=== PATIENT | female | born 1965 | race African-American/Black ===

== ENCOUNTER 2019-11-10 18:02 | Observation (INO) | payer OTHER ==
[~2019-11-10] VITALS: Ht 165.1 cm; Wt 76.5 kg
[2019-11-10 18:20] VITALS: BP 127/72
[2019-11-10 19:16] LABS: ABSOLUTE NEUTROPHILS 11.1 thou/uL (1.4-8.2); BASOPHILS 0.3 % (0.0-2.0); EOSINOPHILS 0.3 % (0.0-3.0); HEMATOCRIT 47.1 % (37.0-47.0); HEMOGLOBIN 15.7 gm/dL (12.0-15.0); LYMPHOCYTES 5.6 % (24.0-44.0); MCH 31.4 pg (26.0-34.0); MCHC 33.4 g/dL (28.0-37.0); MONOCYTES 3.6 % (1.0-8.0); PLATELET COUNT 202 thou/uL (150-400); POLYS 90.2 % (36.0-66.0); RBC 5.01 mil/uL (4.20-5.00); RDW 12.5 % (10.5-14.5); WBC 12.3 thou/uL (4.0-11.0)
[2019-11-10 19:21] LABS: ANION GAP 16 mmol/L (7-16); BUN 9 mg/dL (7-18); CALCIUM 8.5 mg/dL (8.5-10.1); CHLORIDE 102 mmol/L (98-107); CO2 20 mmol/L (21-32); CREATININE 0.9 mg/dL (0.6-1.0); GLUCOSE 122 mg/dL (74-106); POTASSIUM 4.2 mmol/L (3.5-5.1); SODIUM 138 mmol/L (136-145)
[2019-11-10 19:33] LABS: ALBUMIN 3.4 g/dL (3.4-5.0); SGOT 46 U/L (15-37); SGPT 42 U/L (30-65); TOTAL BILIRUBIN 0.6 mg/dL (<0.1-1.0); TOTAL PROTEIN 7.3 g/dL (6.4-8.2); TROPONIN-I <0.06 ng/mL (<0.06)
[2019-11-10 20:59] VITALS: BP 148/89
--- NOTE | 2019-11-10 21:03 | NUR ---
ED NURSE CALLED TO GIVE REPORT TO INPATIENT NURSE, WAS TOLD NURSE WILL CALL BACK
[2019-11-10 21:55] VITALS: BP 15/84; BP 153/84
[2019-11-11 04:20] VITALS: BP 121/58
--- NOTE | 2019-11-11 05:38 | NUR ---
PT ARRIVED FROM ER VIA W/C. PLACED IN ROOM 355. ADMISSION ASSESSMENTS COMPLETED. HAS DENIED ANY SOA OVER NIGHT. REPORTS NOT FEELING SOA WHILE UP USING THE TOILET. ARRIVED ON O2 AT 4L WITH O2 SAT 99%. HAVE TITRATED O2 DOWN TO 2L PER NC THIS MORNING WITH AN O2 SAT OF 93%. DENIES ANY NAUSEA.
[2019-11-11 05:58] LABS: HEMATOCRIT 41.2 % (37.0-47.0); MCH 30.7 pg (26.0-34.0); MCHC 32.4 g/dL (28.0-37.0); MCV 94.8 fL (80.0-100.0); RBC 4.35 mil/uL (4.20-5.00); RDW 12.5 % (10.5-14.5); WBC 11.8 thou/uL (4.0-11.0)
[2019-11-11 06:00] LABS: HEMOGLOBIN 13.4 gm/dL (12.0-15.0)
[2019-11-11 06:09] LABS: CALCIUM 8.1 mg/dL (8.5-10.1); CREATININE 0.9 mg/dL (0.6-1.0); POTASSIUM 3.9 mmol/L (3.5-5.1)
--- NOTE | 2019-11-11 08:35 | EKG ---
[facility] [place] [place] [address] ELECTROCARDIOGRAM REPORT Name: DANIEL BRUCE Room #: 355- ADM IN M.R.#: [id number] Admission: 11/10/19 Attend Phys: Harvinder Dunaway Discharge: Date of : 61 Report #: [id number] THIS REPORT FOR: cc: KATE - Carissa family physician/PCP KATE - Carissa family physician/PCP Bc Cunningham MD [facility] THIS REPORT FOR: //name// [facility] ED Test Date: 2019-11-10 Test Time: 19:09:02 Pat Name: DANIEL BRUCE Department: Room: [facility] Gender: F Deputy Register Of Deeds: : 1965 Requested By: Jose Daniel Tran Order Number: [id number] MD: Bc Cunningham Measurements Intervals Gardner Rate: 101 P: 38 OR: 118 QRS: 34 QRSD: 81 T: -28 QT: 379 QTc: 492 Interpretive Statements Sinus tachycardia Nonspecific ST and T wave abnormality Borderline prolonged QT interval No previous ECG available for comparison Electronically Signed On 11-11-2019 8:33:35 CDT by Bc Cunningham [email or web address] <ELECTRONICALLY SIGNED> By: Bc Cunningham MD, FACC 11/11/19 0833 [id number] Bc Cunningham MD, [facility] /EPI
[2019-11-11] MEDS ORDERED: LEVAQUIN 500 M500 M2 PO (08:39)
[2019-11-11] MEDS ORDERED: MUCINEX600 MG PO (08:39)
--- NOTE | 2019-11-11 10:51 | NUR ---
ASSESSMENT: CM REVIEWED CHART AND SPOKE WITH PATIENT VIA THE PHONE. PT REPORTS THAT SHE LIVES IN AN APT WITH HER BOYFRIEND. PT STATES SHE IS FULLY INDEPEPDENT WITH ADLS AND AMBULATION. PT HAS HAD NO PAST HH OR SNF EXPERIENCE. PT REPORTS THAT SHE DOES NOT HAVE ANY OXYGEN AT HOME BUT PT IS CURRENTLY HERE ON 2L OXYGEN. PT REMAINS IN [place] FOR COVID RULE OUT. CM WILL CONTINUE TO FOLLOW TO ASSIST NEEDED. PT IS HOPEFUL TO RETURN HOME WITH NO NEEDS.
[2019-11-11 14:53] VITALS: BP 121/58
[2019-11-11 17:02] VITALS: BP 158/95
--- NOTE | 2019-11-11 18:16 | NUR ---
PATIENT RESTED IN BED THROUGH THE DAY. SHE IS ALERT ORIENTED X4. DENIES PAIN. STATES SHE WILL PREFER TO GO HOME TODAY. HER OXYGEN IS HOWEVER NOTED TO BE 84% IN ROOM AIR. NOTIFIED AND PREFERS PATIENT TO STAY ANOTHE NIGHT TO IMPROVE. COVID TEST WAS NEGATIVE AND NOTIFIED. WILL CONT WITH PLAN OF CARE.
[2019-11-11 20:09] VITALS: BP 157/75
[2019-11-12 00:44] VITALS: BP 115/78
[2019-11-12 04:14] VITALS: BP 143/75
--- NOTE | 2019-11-12 05:50 | NUR ---
PT A&O X4 ABLE TO MAKE NEEDS KNOWN. DENIES PAIN. UP AD RAVEN. PT CONTINUES ON 02 2L PER NC. CONT OF B&B. NO ACUTE FINDINGS THIS SHIFT.
[2019-11-12 07:30] VITALS: BP 148/71
[2019-11-12 11:30] VITALS: BP 144/73
--- NOTE | 2019-11-12 13:44 | NUR ---
Pt is covid negative. Weaning off o2 and possible dc home tomorrow.CXR better. O2 referral canceled with [facility]. Will follow.
--- NOTE | 2019-11-12 14:07 | NUR ---
ASSESSMENT CHARTED. PT ALERT AND ORIENTED. VSS. DENIED HAVING PAIN OR DISCOMFORT. ORDERS GIVEN TO DISCHARGE PT TO HOME. DISCHARGE INSTRUCTIONS GIVEN TO PT. PT VERBERLISED UNDERSTANDING.
== END 2019-11-12 14:11 | disposition home or self-care (01) ==
LOC: ER 18:02 → 2N 19:55 → 3W 19:55 → EROBS 19:55 → 3W 19:55 → 2N 11-11 19:15 → ENTRNSPT 11-12 14:02 → 2N 11-12 14:11
PROVIDERS: Emergency Medicine; Nurse Practitioner Family; ADMIT Hospitalist
DX: J18.9 Pneumonia, unspecified organism (principal); F17.210 Nicotine dependence, cigarettes, uncomplicated; R09.02 Hypoxemia; Z83.3 Family history of diabetes mellitus
CPT/HCPCS: 10797; 10879